=== PATIENT | female | born 2000 | race African-American/Black ===

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

== ENCOUNTER 2021-05-09 16:16 | Emergency (ER) | payer OTHER ==
[2021-05-09 17:03] LABS: Bacteria/HPF 2+ HPF (None Seen); Bilirubin Negative (Negative); Blood, Urine Negative (Negative); Clarity Turbid (Clear); Glucose, Urine (Dipstick) Normal (Negative); Ketone, Urine Negative (Negative); Leukocyte 500 Leu/uL (Negative); Nitrite Negative (Negative); Protein, Urine (Dipstick) 10 mg/dL (Neg-Trace); RBC/HPF 0-3 HPF (0-3); Specific Gravity, Urine 1.028 (1.002-1.036); Squamous Epithelial 21-50 HPF (0-3); Urobilinogen Normal mg/dL (Less than 2); WBC/HPF 21-50 HPF (0-3); pH, Urine 6.5 (5.0-9.0)
[2021-05-09] MEDS ORDERED: cefTRIAXone\\ROCEPHIN 250 MG VIAL ONE (18:03)
[2021-05-09] MEDS ORDERED: Azithromycin 250 MG TAB ONE (18:03)
[2021-05-09 18:51] LABS: Pregnancy Test - Urine (BHCG) Negative (Negative); Pregu Control Background? CLEAR/WHITE (CLR/WHITE); Pregu Control Bar Appear? YES (CONTROL BAR); Specific Gravity 1.026 (1.002-1.036)
[2021-05-09 19:10] LABS: HIV (1/2) Antibody/Antigen Non-Reactive (NonReactive); HIV 1/2 INDEX 0.08 S/CO (<1.00)
[2021-05-10 21:42] LABS: Chlam.trachomatis by PCR,Urine Not Detected (NotDetected)
== END 2021-05-09 18:28 | disposition home or self-care (01) ==
LOC: ERS 16:16
DX: K13.79 Other lesions of oral mucosa (principal); R56.9 Unspecified convulsions
CPT/HCPCS: 36415; 81003; 81015; 81025; 87252; 87389; 87491; 87591; 96372; 99283; J0696

== ENCOUNTER 2021-05-12 12:45 | Emergency (ER) | payer OTHER ==
[2021-05-12] MEDS ORDERED: Ketorolac Tromethamine 30 MG/ML VIAL ONE (13:40)
== END 2021-05-12 14:38 ==
LOC: ERS 12:45
DX: B37.3 Candidiasis of vulva and vagina (principal)
CPT/HCPCS: 96372; 99283; J1885

== ENCOUNTER 2021-07-03 11:05 | Emergency (ER) | payer OTHER ==
[2021-07-03] MEDS ORDERED: Ondansetron PF 4 MG/2 ML Vial ONE (12:46)
[2021-07-03] MEDS ORDERED: Famotidine/PF 20 mg/2ml Vial ONE (12:46)
[2021-07-03 12:52] LABS: #Lymphocytes 0.4 thou/uL (1.20-3.40); #Monocytes 0.4 thou/uL (0.11-0.59); #Neutrophils 6.9 thou/uL (1.40-6.50); %Eosinophils 0.2 % (0.0-10.0); %Lymphocytes 5.7 % (28.0-48.0); %Monocytes 4.7 % (0.0-4.0); %Neutrophils 89.4 % (31.0-61.0); Hemoglobin 11.3 g/dL (12.0-16.0); Mean Corpuscular HGB CONC 32.1 g/dL (32.0-36.0); Mean Corpuscular Hemoglobin 29.3 pg (25.0-35.0); Mean Corpuscular Volume 91.3 fL (78.0-98.0); Mean Platelet Volume 8.8 fL (7.4-10.4); Platelet Count 240 thou/uL (130-400); RBC Distribution Width 11.6 % (11.5-14.5); Red Blood Cell (RBC) Count 3.86 mill/uL (4.00-5.20); White Blood Cell (WBC) Count 7.7 thou/uL (4.8-10.8)
[2021-07-03 13:09] LABS: BHCG - Serum Negative (NEGATIVE); Pregs Control Background? CLEAR/WHITE (CLR/WHITE); Pregs Control Bar Appear? YES (CONTROL BAR)
[2021-07-03 13:11] LABS: ALT (SGPT) 11 U/L (8-55); AST (SGOT) 13 U/L (5-34); Albumin 4.4 g/dL (3.5-5.0); Alkaline Phosphatase 53 U/L (40-100); Anion Gap 12 mmol/L (10-20); BUN (Urea Nitrogen) 13 mg/dL (7.0-18.7); Bilirubin, Total 0.9 mg/dL (0.2-1.2); Calc. Creatinine Clearance 0 mL/min (70-130); Calcium 9.1 mg/dL (7.8-10.44); Carbon Dioxide 25 mmol/L (22-29); Chloride 108 mmol/L (98-107); Globulin 3.1 g/dL (2.4-3.5); Glucose 106 mg/dL (70-105); Potassium 3.6 mmol/L (3.5-5.1); Protein, Total 7.5 g/dL (6.0-8.3); Sodium 141 mmol/L (136-145)
[2021-07-03] MEDS ORDERED: Promethazine HCl 25 MG/ML VIAL ONE (13:40)
[2021-07-03 13:45] LABS: Bacteria/HPF None Seen HPF (None Seen); Bilirubin Negative (Negative); Blood, Urine 2+ (Negative); Clarity Clear (Clear); Glucose, Urine (Dipstick) Normal (Negative); Ketone, Urine 60 mg/dL (Negative); Leukocyte Negative Leu/uL (Negative); Nitrite Negative (Negative); Protein, Urine (Dipstick) 20 mg/dL (Neg-Trace); RBC/HPF 0-3 HPF (0-3); Specific Gravity, Urine 1.026 (1.002-1.036); Squamous Epithelial 0-3 HPF (0-3); Urobilinogen Normal mg/dL (Less than 2); WBC/HPF 0-3 HPF (0-3)
== END 2021-07-03 15:03 | disposition home or self-care (01) ==
LOC: ERS 11:05
DX: R11.2 Nausea with vomiting, unspecified (principal)
CPT/HCPCS: 80053; 81003; 81015; 84703; 85025; 96365; 96372; 96375; J0500; J2405; J2550; S0028

== ENCOUNTER 2022-07-22 19:48 | Emergency (ER) | payer OTHER ==
[2022-07-22] MEDS ORDERED: Dexamethasone 10 MG/ML VIAL ONE (22:11)
== END 2022-07-22 22:18 | disposition home or self-care (01) ==
LOC: ERS 19:48
DX: J02.9 Acute pharyngitis, unspecified (principal)
CPT/HCPCS: 87081; 87430; 99283; J1100